=== PATIENT | female | born 1940 | race Caucasian/White ===

== ENCOUNTER 2017-03-01 11:42 | Day surgery (SDC) | payer MEDICARE, OTHER ==
[~2017-03-01] VITALS: Ht 162.6 cm; Wt 81.7 kg
[~2017-03-01 11:42] MED LIST: ALBU8.5H2 INHALATION; AMLO10TA3 PO; ASCO500C6 PO; ATOR20TA PO; CHOL40003 PO; FLUT12AE10 IH; GLPZ5T PO; INSU100I13 SUBQ; KEN25CR EXT; LABE100T4 PO; LEVO125T2 PO; Lactated Ringer's 1,000 ML IV ONE; MULT-1018 PO; OMEP20TA24 PO
[2017-03-01] MEDS ORDERED: fentaNYL-PF 50 mCg/mL 2 mL Inj ONE (11:43)
[2017-03-01] MEDS ORDERED: Propofol 10,000 mCg/mL 20 mL Inj ONE (11:43)
[2017-03-01 11:49] VITALS: BP 147/63; PULSE 51; RESP 16; O2SAT 98
[2017-03-01] MEDS ORDERED: Lactated Ringer's 1,000 ML IV SCH (12:14)
--- NOTE | 2017-03-01 12:14 | PCM.HPANE ---
Patient Data Surgeon Admitting Provider: Attending Provider:Corey Llamas MD Primary Care Physician:Yakov Desai MD Other Provider:Reji Dukes Anesthesia Reason for Visit Abd Bloating/Gerd Ht/WT & BMI Height (Feet): 5 Height (Inches): 4 Weight (Kilograms): 81.65 Body Mass Index 30.00 Allergies Coded Allergies: adhesive (Verified Allergy, Severe, BLISTERING, 02/25/17) acetaminophen (Verified Allergy, Intermediate, VERTIGO, 02/25/17) hydrocodone (Verified Allergy, Intermediate, VERTIGO, 02/25/17) oxycodone (Verified Allergy, Intermediate, ITCHING, 02/25/17) ibuprofen (Verified Allergy, Unknown, 02/25/17) gabapentin (Verified Adverse Reaction, Intermediate, DIZZINESS, 02/25/17) Uncoded Allergies: BANDAIDS (Allergy, Mild, rash, 06/06/13) No Known Allergies (Allergy, Unknown, 03/13/04) IBUPROFEN (Generic ADR) (Adverse Reaction, Intermediate, Y, 03/13/04) GI Past Anesthesia History Anesthesia History: Denies:: Abnormal Airway, Anesthesia Reactions, Difficult Intubation, Fam Anesthesia Reaction, Fam Malignant Hypertherm, Malignant Hyperthermia Diabetes History Hx Diabetes?: Yes Current Bedside Blood Glucose: 128 MRSA MRSA: No Medications Home Meds Incl Beta Renay: Yes Date Beta Renay Taken: Mar 01, 2017 Time Beta Renay Taken: 0700 Reported Medications Cholecalciferol (Vitamin D3) (Vitamin D3)4,000 Unit Capsule4,000 Unit PO DAILY 02/25/17 Ascorbic Acid (Vitamin C)500 Mg Capsule.er1,000 Mg PO DAILY 02/25/17 Levothyroxine (Synthroid)125 Mcg Edjimc423 Mcg PO DAILY Ref 0 02/25/17 Albuterol HFA (Proair HFA)8.5 Gm Hfa.aer.ad2 Puffs INHALATION Q4H #1 INHALER 02/25/17 Omeprazole Magnesium (Prilosec Otc)20 Mg Tablet.dr20 Mg PO DAILY #1 PKG Ref 0 02/25/17 Multivitamin (Multi Vitamin Daily)1 Each Tablet1 Each PO DAILY 30 Days Ref 0 02/25/17 Insulin Glargine (Lantus U100 Solostar Insulin Pen)100 Unit/1 Ml Insuln.pen18 Unit SUBQ HS #1 PENINJ Ref 0 02/25/17 Labetalol 100 Mg Untrmh602 Mg PO BID 02/25/17 Glipizide 5 Mg Tablet5 Mg PO DAILY 30 Days 02/25/17 Fluticasone Propionate (Flovent HFA 220 mcg)12 Gm Aer.w.adap2 Puffs IH BID #12 GM Ref 0 02/25/17 Atorvastatin (Lipitor)20 Mg Kbduln97 Mg PO DAILY Ref 0 02/25/17 Amlodipine 10 Mg Otzodf52 Mg PO DAILY Ref 0 02/25/17 Discontinued Reported Medications Triamcinolone Acet (Triamcinolone Acetonide Cream)1 Applic/0.25 Gm Cr1 Applic EXT BID #60 GM Ref 0 02/25/17 Pramipexole Dihydrochloride (Mirapex)0.5 Mg Tablet0.5 Mg PO DAILY 09/08/15 Omeprazole 20 Mg Tablet.dr20 Mg PO DAILY 09/08/15 Labetalol 200 Mg Qltzxv282 Mg PO BID 09/08/15 Levothyroxine 137 Mcg Nebkdy812 Mcg PO DAILY Ref 0 09/08/15 Insulin Glargine (Lantus U100 Insulin Vial)100 Unit/Ml Vial24 Unit SUBQ HS Ref 0 09/08/15 Atorvastatin Calcium 20 Mg Zrvsqf73 Mg PO DAILY Ref 0 09/08/15 Amlodipine 10 Mg Qpkylo08 Mg PO DAILY Ref 0 09/08/15 Ascorbic Acid (Vitamin C)1,000 Mg Tab.chew1,000 Mg PO DAILY Ref 0 07/31/14 Ca Cmb No.1/Vit D3/B-6/FA/B12 (Vitamin D3 1,000 Unit Tablet)1 Each Tablet2 Each PO DAILY 30 Days 01/30/14 Multivitamin (Multi Vitamin Daily)1 Each Tablet1 Each PO DAILY 30 Days Ref 0 01/30/14 Glipizide 5 Mg Kljufj61 Mg PO DAILY 30 Days 01/30/14 [xopenex] No Conflict Check45 Mcg PO Q4HRS 08/02/13 [azmacort] No Conflict Check2 Puffs PO BID 08/02/13 History History of ENT Problems?: No HEENT History: Positive for:: Dysphagia (VERY SELDOM) Denies:: Abnormal Airway Difficult Intubation Hearing Problem Denture Type: None Teeth Condition: Within Normal Limits Hx of Heart Problems?: Yes Cardiovascular History: Positive for:: Hypertension Denies:: AICD Atrial Fibrillation Chest Pain Congestive Heart Failure Pacemaker Valvular Heart Disease Hx of Respiratory Problem?: Yes Respiratory History: Positive for:: Asthma Denies:: COPD Cough Hemoptysis Pneumonia Tuberculosis Hx Neurologic Problems?: No Neurological History: Denies:: CVA Hx of GI Problems?: Yes Hx of Problems?: No Female Hx: Denies:: Currently Hx Musculoskeletal Problems?: No Musculoskeletal History: Positive for:: Joint Replacement (NASIM KNEES) Denies:: Fibromyalgia Hx of Psycho/Social Problems?: No Psycho Social History: Denies:: Anxiety Hx Depression Hx Surgeries?: Yes (TONSILLS,NASIM HANDS, KNEE REPLS, BLADDER, APPY ) Hx Any Other Health Problems?: Yes Hx Diabetes: YesBedside Blood Glucose: 128 Hx Alcohol Use: Yes (VERY SELDOM)Hx Substance Use: No Stop/Bang Treated for Sleep Apnea?: Yes Do You Have a CPAP Machine?: Yes Risk Assessment Category Category 1A: Patient has history of documented sleep apnea, and HAS NOT received any narcotic, sedative or anesthesia administration during this stay. Category 1B: Patient has history of documented sleep apnea, and HAS received any narcotic , sedative or anesthesia administration during this stay Category 2: Patient has SUSPECTED Obstructive Sleep Apnea, and HAS received any narcotic , sedative or anesthesia administration during this stay. Category 3: Patient has SUSPECTED Obstructive Sleep Apnea and HAS NOT received narcotic, sedative or anesthesia administration during this stay. Category 4: Outpatient in Procedural Areas with known sleep apnea or who screen positive for High Risk via the STOP/BANG questionnaire. Exam Exam Vital Signs Vital Signs Date Time Temp Pulse Resp B/P Pulse Ox O2 Delivery O2 Flow Rate FiO2 03/01/17 11:49 36.2 51 16 147/63 98 Room Air General Appearance: Alert HEENT/AIRWAY: MP 1, Neck Movement (FROM, 3 FB) Lungs: Clear to Auscultation Heart: Regular Rate/Rhythm Meds/Labs/Diagnostics Admission Meds Current Medications Lactated Ringer's (Lr) 1,000 ml @ 10 mls/hr Q24H ONCE IV Last administered on 03/01/17t 12:03; Start 03/01/17 at 06:00; Stop 03/02/17 at 05:59 Bedside Blood Glucose: 128 Plan Impression Patient chart reviewed, patient interviewed and anesthestic plan with risks, benefits, and alternatives discussed, and informed consent obtained. NPO per Anesth. Guidelines: Yes ASA Physical Status: ASA2 Mod Systemic Disease Anesthetic Plan: MAC Bene/Risks/Altern/Consents: Yes HP Complete Prior to Induction: Yes Nicolás Child MD Mar 01, 2017 12:14
[2017-03-01] MEDS ORDERED: Ondansetron 2 mg/mL 2 mL Inj IVPUSH PRN (12:15)
[2017-03-01] MEDS ORDERED: MetoCLOpramide 5 mg/mL 2 mL Inj IVPUSH PRN (12:15)
[2017-03-01 12:41] VITALS: BP 110/51; PULSE 44; RESP 16; O2SAT 96
--- NOTE | 2017-03-01 12:49 | PCM.ANEP1 ---
Post Anesthesia PACU Phase 1 Assessment Vital Signs Vital Signs Date Time Temp Pulse Resp B/P Pulse Ox O2 Delivery O2 Flow Rate FiO2 03/01/17 12:41 44 16 110/51 96 Room Air 03/01/17 11:49 36.2 51 16 147/63 98 Room Air Anesthetic Administered: MAC Level of Alertness: Awake, talking DANG's with Equal Strength: Yes Pain: No Nausea or Vomiting: No CV Function & Hydration Stable: Yes Airway Device: Oxygen Delivery: Room Air Lungs: Clear to Auscultation Dermatome Level: Full Sensation PACU Phase 2 Assessment Complications: No Follow up Care: N/A Patient Instructions Provided: N/A Nicolás Child MD Mar 01, 2017 12:49
[2017-03-01 12:51] VITALS: BP 123/55; PULSE 47; RESP 16; O2SAT 96
[2017-03-01 13:01] VITALS: BP 134/56; PULSE 40; RESP 16; O2SAT 99
--- NOTE | 2017-03-01 13:50 | ENDO ---
[address] [address] ENDOSCOPY PROCEDURE PATIENT: CARLEY RUTHERFORD : 1940 MR#: [id number] ADMIT: 03/01/2017 JOB ID: [id number] DATE OF SERVICE: 03/01/2017 OPERATION: 1. Esophagogastroduodenoscopy with biopsy. 2. Colonoscopy. PREOPERATIVE DIAGNOSIS(ES): 1. Bloating. 2. Weight loss. 3. Gastroesophageal reflux disease. 4. Family history of colon cancer. POSTOPERATIVE DIAGNOSIS(ES): 1. Mild nonerosive gastritis. 2. Status post one hemoclip placed at a biopsy site in the body of the stomach due to slight oozing after biopsy. 3. Severe sigmoid diverticulosis. ANESTHESIA: Monitored anesthesia care. COMPLICATIONS: None. BLOOD LOSS: Minimal. DESCRIPTION OF PROCEDURE: After risks and benefits were explained to the patient, informed consent was obtained. After anesthesia administered, an upper endoscope was then inserted into the mouth, intubating the esophagus, stomach and second portion of the duodenum, and mucosa carefully examined. After the procedure was done, the scope was withdrawn and the procedure terminated. Colonoscope was then inserted from rectum to the terminal ileum. Mucosa carefully examined. Prep of the patient was fair. After the procedure was done, the scope was withdrawn and the procedure terminated. FINDINGS: Upon inspection of the esophagus, the esophagus was normal without masses, ulcers, or lesions. Z-line located 40 cm from the incisors. Upon entering the stomach, there is mild nonerosive gastritis that was seen. No masses or ulcers were seen. Retroflexion was normal. Duodenal bulb, first and second portions normal. Biopsies were taken from duodenum, antrum, body and distal esophagus. There was slight oozing in the body of the stomach after the biopsy in which one hemoclip was placed. Upon inspection of the anus, no masses, hemorrhoids, ulcers, or fissures that were seen. Throughout the entire examination, there was rare sigmoid diverticulosis. No polyps or masses were seen. terminal ileum was normal. Retroflexion was normal. IMPRESSION: 1. Severe sigmoid diverticulosis. 2. Mild nonerosive gastritis. 3. Status post one hemoclip placed at post biopsy site at the body of the stomach due to slight oozing. RECOMMENDATIONS: Await pathology results. Repeat colonoscopy in five years, given family history of colon cancer.
[2017-03-02] MEDS ORDERED: Lactated Ringer's 1,000 ML IV ONE (06:00)
--- NOTE | 2017-03-03 15:55 | PATH ---
SURGICAL PATHOLOGY Attending Physician:Corey Llamas MD CASE STATUS: Signed Out PATIENT NAME: CARLEY RUTHERFORD PID: [id number] : 1940 DATE COLLECTED:03/01/2017 21:03 SPECIMEN: 1: Duodenum, Biopsy 2: Stomach, Antrum, Biopsy 3: Gastric, Biopsy 4: Esophagus, Biopsy CLINICAL HISTORY: 1). DUODENAL BIOPSY 2). ANTRUM BIOPSY 3). GASTRIC BODY BIOPSY, RULE OUT H PYLORI 4). DISTAL ESOPHAGUS BIOPSY FINAL DIAGNOSIS: 1. Duodenum, Biopsy: Duodenal mucosa with no diagnostic abnormality. Negative for active inflammation, features of sprue, dysplasia or malignancy. 2. Antrum, Biopsy: Gastric antral mucosa with features of reactive gastropathy. Negative for Helicobacter organisms by immunohistochemistry. Negative for intestinal metaplasia, dysplasia, and malignancy. 3. Gastric Body, Biopsy: Gastric body mucosa with no diagnostic abnormality. Helicobacter organisms not identified. Negative for intestinal metaplasia, dysplasia, and malignancy. 4. Distal Esophagus, Biopsy: Squamocolumnar junctional mucosa with no diagnostic abnormality. Negative for intestinal metaplasia, dysplasia or malignancy. ICD10: R63.4 GROSS DESCRIPTION: The specimen is received in four formalin filled containers labeled with the patient's name. 1). The specimen is labeled "duodenal" and consists of a 0.3 x 0.3 x 0.2 CM portion of tissue which is entirely submitted in cassette 1A. 2). The specimen is labeled "antrum" and consists of 2 portions of tissue which aggregate to 0.2 x 0.2 x 0.2 CM. The specimen is entirely submitted in cassette 2A. 3). The specimen is labeled "gastric body" and consists of 2 portions of tissue which aggregate to 0.3 x 0.3 x 0.2 CM. The specimen is entirely submitted in cassette 3A. 4). The specimen is labeled "distal esophagus" and consists of a 0.2 x 0.2 x 0.2 CM portion of tissue which is entirely submitted in cassette 4A. 03/01/2017DC MICRO DESCRIPTION: Parts 1, 3 and 4: See final diagnosis. Part 2: An immunohistochemical stain was performed to evaluate for Helicobacter organisms and is negative. The control stain showed appropriate reactivity. * This test was developed and its performance characteristics determined by [employer]. It has not been cleared or approved by the U.S. Food and Drug Administration. The FDA has determined that such clearance or approval is not necessary. This test is used for clinical purposes. It should not be regarded as investigational or for research. ICD-9 CODES: CPT CODES: 1: 11826 2: 86201, 31173 3: 46263 4: 95252 Electronically Signed Out Rodolfo Lee MD, Ph.D. [facility] Pathology [facility] [address], [place] [address] Technical component performed at [facility], [facility] [address], [place], [address]
== END 2017-03-01 23:59 | disposition home or self-care (01) ==
LOC: END 11:42
PROVIDERS: ATTEND Internal Medicine Gastroenterology
DX: R14.0 Abdominal distension (gaseous) (principal); K57.30 Diverticulosis of large intestine without perforation or abscess without bleeding; K29.50 Unspecified chronic gastritis without bleeding; K21.9 Gastro-esophageal reflux disease without esophagitis; R63.4 Abnormal weight loss; K31.9 Disease of stomach and duodenum, unspecified; R13.10 Dysphagia, unspecified; E11.9 Type 2 diabetes mellitus without complications; I10 Essential (primary) hypertension; J45.909 Unspecified asthma, uncomplicated; Z79.4 Long term (current) use of insulin; Z79.899 Other long term (current) drug therapy
CPT/HCPCS: 43239; 45378; 88305; 88342; G0500; J2704; J3010; J7120